=== PATIENT | female | born 2000 | race Two or more races ===

== ENCOUNTER 2024-11-12 13:52 | Emergency (ER) | payer MEDICAID, OTHER ==
[~2024-11-12] VITALS: Ht 160 cm; Wt 121.7 kg
[2024-11-12] MEDS: LIDOCAINE W/ EPINEPHRINE 1% 20ML VIAL SC ONE (15:47)
[2024-11-12] MEDS ORDERED: CEPH500C PO (16:42)
[2024-11-12] MEDS ORDERED: HYDR-4902 PO ×2 (16:42→20:04)
--- NOTE | 2024-11-12 16:43 | ED.PDOC ---
History of Present Illness(SKN HPI Comments 24 year female with no MHx presents with a chief complaint of a possible abscess to the right buttock area. Symptoms started four days ago. Reports she had the same symptoms in 2019 and underwent an I&D. C/o tenderness to touch. Denies f/c/n/v/d Chief Complaint: Abscess Time Seen by MD: 14:25 Primary Care Provider: NONE History of Present Illness: Nurses Notes, Medications, Allergies Allergies: Coded Allergies: NO KNOWN ALLERGIES (Unverified , 11/12/24) Home Meds Active Scripts Hydrocodone-Acetaminophen (Hydrocodone Bitartrate/AC 5-325 mg) 1 Tab Tab, 1 TAB PO Q8HP PRN for 3 Days, #9 TAB 0 Refills Prov:HILDA MACIAS 11/12/24 Cephalexin Monohydrate (Cephalexin) 500 Mg Cap, 1 CAP PO QID for 5 Days, #20 CAP 0 Refills Prov:BILL LAMAS ATTACHE 11/12/24 Information Source: Patient Mode of Arrival: Ambulatory Family History Family History: Reviewed,noncontributory to illness All Other Systems: Reviewed and Negative (Per HPI) Physical Exam General Appearance: No Apparent Distress, Normal HEENT: Normal ENT Inspection, Pharynx Normal, TMs Normal Neck: Full Range of Motion, Non-Tender, Normal, Normal Inspection Respiratory: Chest Non-Tender, Lungs Clear, No Accessory Muscle Use, No Respiratory Distress, Normal Breath Sounds Cardiovascular: No Edema, No JVD, No Murmur, No Gallop, Normal Peripheral Pulses, Regular Rate/Rhythm Breast Exam: Deferred Gastrointestinal: No Organomegaly, Non Tender, No Pulsatile Mass, Normal Bowel Sounds, Soft Genitalia: Deferred Pelvic: Deferred Rectal: Deferred Extremities: No calf tenderness, Normal capillary refill, Normal inspection, N ormal range of motion, Non-tender, No pedal edema Musculoskeletal : Apperance: Normal Neurologic: Alert, No Motor Deficits, Normal Affect, Normal Mood, No Sensory Deficits Cerebellar Function: Normal Reflexes: Normal Skin: Dry, Normal Color, Warm Lymphatic: No Adenopathy Was a procedure done? Was a procedure done?: Yes Sedation Sedation?: No Incision and Drainage Incision and Drainage: Abscess Location buttock Anesthetic: Lidocaine Preparation: Betadine, Saline Incision and Wound: Pus, Seroma Informed consent obtained: Yes Risks/benefits/alt described: Yes Differential Diagnosis (INTG) Differential Diagnosis: Abrasion X-Ray, Labs, Meds, VS Vital Signs Date Time Temp Pulse Resp B/P (MAP) Pulse Ox O2 Delivery O2 Flow Rate FiO2 11/12/24 16:48 98 18 98 Room Air 11/12/24 16:48 98.3 98 18 138/88 (105) 98 98.3 11/12/24 14:00 98.1 100 16 144/88 (106) 99 X-Ray, Labs, Meds, VS Comment This patient presents with signs and symptoms consistent with a abscess. The abscess is localized without any evidence of deep soft tissue infection based on physical examination. The patient required incision and drainage. Differential diagnosis considered but not limited to: abscess, folliculitis, cellulitis. I also considered deep space infection, necrotizing fasciitis, sepsis, however, this is less likely as the patient does not have rapid expanding erythema or pain out of proportion to suggest necrotizing fasciitis. There is no evidence of sepsis on both a review of their vitals and clinical exam. Procedure Note: Verbal informed consent was obtained from the patient. I discussed the indications, benefits, alternatives and complications to performing an incision and drainage. The patient understands the risks include, but are not limited to scarring, underlying structure injury, bleeding, nerve injury, new infection, and resultant disability. The skin overlying the abscess was prepared with chlorahexidine. The skin surrounding the abscess was locally anesthetized using 1% Lidocaine with EPI An incision using a number 11 blade scalpel was made overlying the abscess. The incision was 1 cm long. Loculations were bluntly dissected using a hemostat. Careful exploration of the abscess cavity demonstrated no foreign body. The abscess cavity was packed with sterile packing. The wound was then dressed with sterile gauze. The wound was hemostatic at the conclusion of the procedure. The patient did not appear to suffer any complications as a result of the procedure. The patient will f/u in 2 days for wound check or return to the ER sooner if it worsens. The patient was counseled in regard to the diagnosis and management of the condition and verbalized understanding of this. The patient understands to return to the ER or seek immediate medical attention if the symptoms worsen. On reevaluation, patient had symptomatic improvement. Patient is stable for discharge at this time. External notes reviewed. Test results and diagnostic imaging interpreted. All diagnostic findings, discharge care, education and instructions provided Follow-up with PCP in 2 to 3 days Patient verbalized understanding and agreed to treatment plan Vital signs stable, afebrile, no acute distress noted Patient ambulatory with strong steady gait Advised to return precautions for any new or worsening symptoms, return to ER immediately for re-evaluation Patient is aware that the purpose of this visit was for an acute medical emergency requiring emergent stabilization. Chronic conditions, including malignancies have not been ruled out. Patient is instructed to follow up with PCP as directed and discharge instructions for continued care and workup. If unable to arrange follow-up, patient is to return to the emergency department for reassessment. Patient (parent or legal guardian if applicable) was given verbal and written discharge instructions and acknowledges understanding. Time of 1ST Reevaluation: 16:40 Reevaluation 1ST: Improved Patient Education/Counseling: Diagnosis, Treatment Family Education/Counseling: Diagnosis, Treatment Departure 1 Departure Time of Disposition: 16:40 Impression: Primary Impression: Pilonidal abscess Disposition: HOME / SELF CARE / HOMELESS Condition: Stable Additional Instructions: Discharge Note: Continue on your medications. Drink plenty of fluids. Follow up with your primary Dr. Take your prescriptions as ordered. If your condition becomes worse call and follow up with your primary Dr. for instructions or return to the ER if needed. Keep wound clean and dry. Have a wound check in 2 days. Thank you for visiting [facility]. e-Prescriptions Hydrocodone-Acetaminophen (Hydrocodone Bitartrate/AC 5-325 mg) 1 Tab Tab 1 TAB PO Q8HP PRN for 3 Days, #9 TAB 0 Refills Prov: HILDA MACIAS 11/12/24 Cephalexin Monohydrate (Cephalexin) 500 Mg Cap 1 CAP PO QID for 5 Days, #20 CAP 0 Refills Prov: BILL LAMAS NP 11/12/24 Critical Care Note Critical Care Time?: No Stability Stability form required: No Heart Score Heart Score: Heart Score Response (Comments) Value History N/A 0 EKG N/A 0 Age N/A 0 Risk Factors N/A 0 Troponin N/A 0 Total 0 BILL LAMAS NP Nov 12, 2024 16:43
[2024-11-12 16:48] VITALS: BP 138/88; PULSE 98; RESP 18; TEMP 98.3; O2SAT 98
== END 2024-11-12 16:50 | disposition home or self-care (01) ==
LOC: ER 13:52
DX: L05.01 Pilonidal cyst with abscess (principal)
CPT/HCPCS: 10080

== ENCOUNTER 2025-07-08 22:25 | Emergency (ER) | payer BC, MEDICAID ==
[~2025-07-08] VITALS: Ht 160 cm; Wt 123.9 kg
[~2025-07-08 22:25] MED LIST: CEPH500C PO; HYDR-4902 PO
--- NOTE | 2025-07-08 23:07 | DVH ---
CHEST RADIOGRAPH Indication: cp Technique: 1 view Comparison: None FINDINGS: Lines and Tubes: None. Lungs/Pleura: Mild increased perihilar interstitial markings. No focal consolidation, pleural effusio n or pneumothorax. Cardiomediastinum: Unremarkable. Other: No acute osseous abnormality. IMPRESSION: 1. Interstitial markings suggestive of a viral process or edema. No consolidation.
[2025-07-08 23:09] LABS: Hematocrit 43.7 % (36.0-46.0); Hemoglobin 14.6 g/dL (12.2-16.2); Mean Corpuscular Hemoglobin 29.6 pg (28.0-32.0); Mean Corpuscular Volume 88.8 fL (80.0-100.0); Nucleated Red Blood Cells % 0.1 %
[2025-07-08 23:28] LABS: Alanine Aminotransferase 32 U/L (7-40); Albumin 4.7 g/dL (3.2-4.8); Anion Gap 11 (5-15); BUN/Creatinine Ratio 8.5 (10.0-20.0); Calcium 9.6 mg/dL (8.7-10.4); Carbon Dioxide 28 mmol/L (20-31); Chloride 103 mmol/L (98-107); Potassium 3.9 mmol/L (3.5-5.1); Sodium 142 mmol/L (136-145); Total Protein 8.0 g/dL (5.7-8.2)
[2025-07-08 23:37] LABS: Alkaline Phosphatase 131 U/L (46-116); Bilirubin, Total 0.3 mg/dL (0.2-1.0); Blood Urea Nitrogen 7 mg/dL (9-23); Glucose 124 mg/dL (74-106)
--- NOTE | 2025-07-08 23:38 | ED.PDOC ---
HPI Comments HPI: Poor Historian. 24-year-old female presents to emergency department for evaluation of one day history of left-sided chest pain nonradiating intermittent. No alleviating or precipitating factors. Chest pain is not associated with any symptoms. Patient is suspects that she ate a poor diet and few days ago vaped and drank alcohol which she thinks contributed to her symptoms. Otherwise patient denies any other symptoms. Patient denies any family history of coronary artery disease. Past Medical History: Obesity Past Surgical History: Skin cyst removal from the back Occasional alcohol and vaping most recently this weekend. REVIEW OF SYSTEMS: CONSTITUTIONAL: Denies acute: fever, diaphoresis, chills, generalized weakness. HEAD: Denies acute: headache, photophobia Eyes: Denies acute: Double vision, vision loss, eye pain, eye discharge. EARS: Denies acute: tinnitus, hearing loss, ear discharge, ear pain, THROAT: Denies acute: sore throat, swelling, difficulty swallowing , pain with swallowing, change in voice. NECK: Denies acute: neck pain, neck swelling, stiff neck. HEART: Denies acute : , palpitations, LUNGS: Denies acute: SOB, wheezing, cough, hemoptysis ABDOMEN: Denies acute: abdominal pain, Nausea, Vomiting, diarrhea, melena , hematemesis, hematochezia SKIN: Denies acute: rash, redness, lesions, itchiness. EXTREMITIES: Denies acute: calf pain, numbness, tingling, weakness, denies pain in extremity. Denies acute: Low back pain. Neuro: Denies acute: focal neurological deficit, motor or sensory focal neurological deficit, tremors, seizure like activity, confusion, dizziness, change in mental status, loss of bowel or bladder function, cauda equina like symptoms. : Denies acute: dysuria, hematuria, flank pain, increase in urinary frequency. PSYCH: Denies acute: hallucination, suicidal ideation, homicidal ideation. FEMALE: Denies acute: abnormal vaginal bleeding, foul odor, unusual discharge. PHYSICAL EXAM: General: -----no---acute distress, awake and alert. Head: normocephalic, atraumatic. Neck: supple, trachea is midline, no swelling. Throat: Normal phonation. Eyes:, no erythema, no purulent discharge, no proptosis, no icterus. Heart: regular rate, regular rhythm, no significant murmur appreciated. Lungs: no apparent respiratory distress, Able to speak in full sentences. No wheezing, no rhonchi, no crackles. No stridors Clear to auscultation bilaterally. Abdomen: non tender to palpation, non distended, soft, no guarding, no rebound, + bowel sounds. Obese Neuro: Awake, Alert, oriented to name, self, situation, follows commands GCS=15. Speech is normal. Skin: no petechia, no purpura, no cyanosis, non-pale, not jaundice. Lower extremities: --no - Pitting edema no deformity, no focal swelling, no calf TTP. Makes eye contact. moves all four extremities. Face: no apparent facial droop. Ambulating in the ED independently. ED COURSE: DISCLAIMER: This medical document was created using an electronic medical record system with voice recognition software and computerized dictation system. Although this document has been carefully reviewed, there might still be some phonetic and typographical errors. Occasional wrong-word or "sound-alike" substitutions may have occurred due to the inherent limitations of voice recognition software. These areas are purely typographical due to imperfections of the software programs and do not reflect any compromise in the patient's medical care. Please read the chart carefully and recognize, using context, where these substitutions have occurred. Chief Complaint: Chest Pain Time Seen by MD: 22:35 Primary Care Provider: NONE Reviewed Notes: Allergies Allergies: Coded Allergies: NO KNOWN ALLERGIES (Unverified , 11/12/24) Home Meds Active Scripts Hydrocodone-Acetaminophen (Hydrocodone Bitartrate/AC 5-325 mg) 1 Tab Tab, 1 TAB PO Q8HP PRN for 3 Days, #9 TAB 0 Refills Prov:HILDA MACIAS 11/12/24 Cephalexin Monohydrate (Cephalexin) 500 Mg Cap, 1 CAP PO QID for 5 Days, #20 CAP 0 Refills Prov:BILL LAMAS LOGGING SUPERINTENDENT 11/12/24 Information Source: Patient Mode of Arrival: Ambulatory Family History Family History: Reviewed,noncontributory to illness X-Ray, Labs, Meds, VS Vital Signs Date Time Temp Pulse Resp B/P (MAP) Pulse Ox O2 Delivery O2 Flow Rate FiO2 07/08/25 23:40 89 07/08/25 22:34 99 07/08/25 22:29 98.5 105 18 151/102 99 98.5 Lab Test 07/09/25 00:22 07/08/25 22:43 Range/Units Troponin I High Sensitivity < 3 L < 3 L </=34 ng/L White Blood Count 12.6 H 4.4-10.8 10^3/uL Red Blood Count 4.92 4.0-5.20 10^6/uL Hemoglobin 14.6 12.2-16.2 g/dL Hematocrit 43.7 36.0-46.0 % Mean Corpuscular Volume 88.8 80.0-100.0 fL Mean Corpuscular Hemoglobin 29.6 28.0-32.0 pg Mean Corpuscular Hemoglobin Concent 33.3 32.0-36.0 g/dL Red Cell Distribution Width 13.9 11.8-14.3 % Platelet Count 290 140-450 10^3/uL Mean Platelet Volume 8.2 6.9-10.8 fL Neutrophils (%) (Auto) 58.6 37.0-80.0 % Lymphocytes (%) (Auto) 35.0 10.0-50.0 % Monocytes (%) (Auto) 4.1 0.0-12.0 % Eosinophils (%) (Auto) 1.8 0.0-7.0 % Basophils (%) (Auto) 0.5 0.0-2.0 % Neutrophils # (Auto) 7.4 1.6-8.6 10 ^3/uL Lymphocytes # (Auto) 4.4 0.4-5.4 10 ^3/uL Monocytes # (Auto) 0.5 0-1.3 10 ^3/uL Eosinophils # (Auto) 0.2 0-0.8 10 ^3/uL Basophils # (Auto) 0.1 0-0.2 10 ^3/uL Nucleated Red Blood Cells 0.1 % D-Dimer, Quantitative 0.21 0.0-0.49 mg/L FEU Sodium Level 142 136-145 mmol/L Potassium Level 3.9 3.5-5.1 mmol/L Chloride Level 103 98-107 mmol/L Carbon Dioxide Level 28 20-31 mmol/L Anion Gap 11 5-15 Blood Urea Nitrogen 7 L 9-23 mg/dL Creatinine 0.82 0.550-1.02 mg/dL Glomerular Filtration Rate Calc 102 >90 mL/min BUN/Creatinine Ratio 8.5 L 10.0-20.0 Serum Glucose 124 H 74-106 mg/dL Calcium Level 9.6 8.7-10.4 mg/dL Total Bilirubin 0.3 0.2-1.0 mg/dL Aspartate Amino Transferase (AST) 32 13-40 U/L Alanine Aminotransferase (ALT) 32 7-40 U/L Alkaline Phosphatase 131 H 46-116 U/L B-Type Natriuretic Peptide 13.34 0-100 pg/mL Total Protein 8.0 5.7-8.2 g/dL Albumin 4.7 3.2-4.8 g/dL [place] [address] Ph: [phone] DIAGNOSTIC IMAGING Diagnostic Imaging Report : [id number] Signed PATIENT: ANAHI BUTT ACCT: [id number] UNIT: [id number] : 2000 LOC: ER ROOM / BED: / AGE / SEX: 24 / F ADM STATUS: REG ER SERVICE 34 ORDERING PHYSICIAN: LESLEE RUIZ DO PROCEDURE(s): CXRP - CHEST PORTABLE REASON: cp ORDER NUMBER(s): [id number], ACCESSION NUMBER(s): [id number] CHEST RADIOGRAPH Indication: cp Technique: 1 view Comparison: None FINDINGS: Lines and Tubes: None. Lungs/Pleura: Mild increased perihilar interstitial markings. No focal consolidation, pleural effusion or pneumothorax. Cardiomediastinum: Unremarkable. Other: No acute osseous abnormality. IMPRESSION: 1. Interstitial markings suggestive of a viral process or edema. No consolidation. ATED BY: KISHORE ANAYA MD DICTATED DATE/TIME: 07/08/252304 SIGNED BY: KISHORE ANAYA MD SIGNED DATE/TIME: 07/08/252304 CC: SEPSIS Sepsis Screen Date sepsis recognized/suspect: Jul 08, 2025 Time Sepsis recognized/suspect: 2231 Recent Procedure: No On Antibiotic Therapy: No Respiratory Rate >20: No Heart Rate >90: No Temp<36 C (96.8 F) or >38.3 C: No SBP <90 or MAP <65 mmHG: No New Acute Mental Status Change: No Is the patient on CPAP, BIPAP,: No Physician Orders Drop Wire Stringer (07/08/25 ) Chest Portable (07/08/25 22:35) Electrocardigram (07/08/25 22:35) Drug Screen (07/08/25 22:35) Troponin-I Hs (07/09/25 01:35) Electrocardigram (07/08/25 23:35) Electrocardigram (07/09/25 01:35) Vital Signs Date Time Temp Pulse Resp B/P (MAP) Pulse Ox O2 Delivery O2 Flow Rate FiO2 07/08/25 23:40 89 07/08/25 22:34 99 07/08/25 22:29 98.5 105 18 151/102 99 98.5 Laboratory Tests Test 07/08/25 22:43 White Blood Count 12.6 10^3/uL (4.4-10.8) H Departure 1 Departure Impression: Primary Impression: Chest pain Disposition: HOME / SELF CARE / HOMELESS Condition: Stable Additional Instructions: Additional instructions: Please read all instructions provided in this packet carefully. You MUST follow-up with your primary care/family doctor in 1 to 2 days. If you are unable to see your primary care/family doctor, please return to our emergency room for re-assessment and re-evaluation in 1 to 2 days. Return to the emergency room here in our facility or to the nearest ER [facility] if your symptoms change or worsen. CONSULTATIONS: you MUST Follow-up for consultation as soon as possible with: -cardiology in 1-2 days. Please call for appointment. You MUST call the consultants office yourself to make an appointment. You may need to arrange that through your insurance and/or your primary/family doctor. If you are unable to see the health and safety consultant in 1 to 2 days, you must return to our emergency room (or any other ER of your choice) for re-assessment and re- evaluation. Adequate fluid hydration. Although you have been discharged from the Emergency Department, this does not mean that you have a "clean bill of health". No definitive diagnosis for your symptoms has been made today. It is possible that you are in the process of developing a serious illness. This is why you must return to the ED without fail if any new or worsening symptoms develop. Avoid vaping tobacco drugs or alcohol. Below is a copy of his chest x-ray report for follow up. [address] [address] Ph: [phone] DIAGNOSTIC IMAGING Diagnostic Imaging Report : [id number] Signed PATIENT: ANAHI BUTT ACCT: [id number] UNIT: [id number] : 2000 LOC: ER ROOM / BED: / AGE / SEX: 24 / F ADM STATUS: REG ER SERVICE 34 ORDERING PHYSICIAN: LESLEE RUIZ DO PROCEDURE(s): CXRP - CHEST PORTABLE REASON: cp ORDER NUMBER(s): [id number], ACCESSION NUMBER(s): [id number] CHEST RADIOGRAPH Indication: cp Technique: 1 view Comparison: None FINDINGS: Lines and Tubes: None. Lungs/Pleura: Mild increased perihilar interstitial markings. No focal consolidation, pleural effusion or pneumothorax. Cardiomediastinum: Unremarkable. Other: No acute osseous abnormality. IMPRESSION: 1. Interstitial markings suggestive of a viral process or edema. No consolidation. ATED BY: KISHORE ANAYA MD DICTATED DATE/TIME: 07/08/252304 SIGNED BY: KISHORE ANAYA MD SIGNED DATE/TIME: 07/08/252304 CC: Discharged With: Self Heart Score Heart Score: Heart Score Response (Comments) Value History Slightly Suspicious 0 EKG Normal 0 Age <45 0 Risk Factors 1 or 2 risk factors 1 Troponin Normal limit 0 Total 1 LESLEE RUIZ DO Jul 08, 2025 23:38
--- NOTE | 2025-07-09 01:41 | ECG ---
[facility] Test Date: 2025-07-09 Test Time: 01:39:49 Pat Name: ANAHI BUTT Department: ED Room: Gender: F Unix Engineer: KRIS : 2000 Requested By: LESLEE RUIZ Order Number: [id number] Reading MD: Measurements Intervals [place] Rate: 88 P: 73 IA: 165 QRS: 83 QRSD: 90 T: 64 QT: 393 QTc: 476 Interpretive Statements Sinus rhythm LAE, consider biatrial enlargement Borderline T abnormalities, anterior leads Borderline prolonged QT interval Please click the below link to view image of tracing.
--- NOTE | 2025-07-09 01:42 | ECG ---
[facility] Test Date: 2025-07-08 Test Time: 22:34:53 Pat Name: ANAHI BUTT Department: ED Room: Gender: F Seasonal Retail Merchandiser: MARYBETH : 2000 Requested By: LESLEE RUIZ Order Number: [id number] Reading MD: Measurements Intervals [place] Rate: 99 P: 50 MO: 149 QRS: 84 QRSD: 95 T: 51 QT: 376 QTc: 483 Interpretive Statements Sinus rhythm Consider right atrial enlargement Borderline T abnormalities, anterior leads Borderline prolonged QT interval Please click the below link to view image of tracing.
--- NOTE | 2025-07-09 01:42 | ECG ---
[facility] Test Date: 2025-07-08 Test Time: 23:40:16 Pat Name: ANAHI BUTT Department: ED Room: Gender: F Director Of Pharmacy: MARYBETH : 2000 Requested By: LESLEE RUIZ Order Number: [id number] Reading MD: Measurements Intervals [place] Rate: 89 P: 71 [place]: 158 QRS: 85 QRSD: 86 T: 61 QT: 387 QTc: 471 Interpretive Statements Sinus rhythm Consider right atrial enlargement Borderline T wave abnormalities Please click the below link to view image of tracing.
[2025-07-09 02:05] VITALS: BP 121/85; TEMP 98.6
[2025-07-09 02:09] VITALS: PULSE 90; RESP 14; O2SAT 100
== END 2025-07-09 02:10 | disposition home or self-care (01) ==
LOC: ER 22:25
DX: R07.89 Other chest pain (principal); Z79.899 Other long term (current) drug therapy
CPT/HCPCS: 36415; 71045; 80053; 83880; 84484; 85025; 85379; 93005